=== PATIENT | male | born 1955 | race Caucasian/White ===

== ENCOUNTER → 2018-12-01 | Outpatient (CLI) | payer MEDICARE, MEDICAID ==
--- NOTE | 2018-12-02 12:27 | RADONC ---
RADIATION ONCOLOGY CONSULTATION NOTE DATE: 12/01/2018 CHART NUMBER: [id number] DIAGNOSIS: Mycoses fungoides. STAGE: Recurrent. ECOG PERFORMANCE STATUS: 3. CONSULTATION NOTE: Mr. 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 These lesions are causing him itchiness. He is also here to discuss the possibilities of phototherapy, which has been recommended. HISTORY OF PRESENT ILLNESS: I do not have any records on this patient but apparently he was initially diagnosed in the year 2011 with extensive mycoses lesions involving his legs, shoulders, buttocks, and other areas. The patient was seen in [place] and has been treated with nitrogen mustard and other topical agents over the years. He has had good control with minimal problems throughout that time. Recently, he has had some increased flare-up involving his left buttock, as well as his right upper shoulder region. He is now presenting to me for discussion of phototherapy. The lesions appear to be resistant to Imiquimod treatment. PAST MEDICAL HISTORY: The patient's past medical history is positive for hepatitis and seizure disorder. He is presently in an assisted living facility. ALLERGIES: The patient has NO KNOWN DRUG ALLERGIES. SOCIAL HISTORY: The patient does not smoke cigarettes nor abuse alcohol. FAMILY HISTORY: The patient's family history is unknown. REVIEW OF SYSTEMS: The patient's review of systems is positive for physical limitations and malformation of his left upper extremity. He also has some itching of the skin. He has not been verbal throughout the consultation. PHYSICAL EXAMINATION: The patient's skin shows lesions present over his left buttock, as well as small lesions over his legs bilaterally and his right shoulder. The skin otherwise is in good condition. Remainder of the physical exam is remarkable for his limited range of motion in his upper extremity. There is no palpable cervical, supraclavicular, infraclavicular or axillary lymphadenopathy present. His lungs are clear to auscultation and percussion. His heart has regular rate and rhythm. ASSESSMENT The patient has scattered patches of mycoses fungoides, which have been chronic in nature and are now apparently resistant to his Imiquimod treatment. I had a lengthy discussion with the patient's caregiver in the presence of the patient. I think it reasonable to attempt phototherapy at this point. Indeed this is not a curative disease, the role of treatment is palliation of his symptoms. Of course, we could treat this area with palliative radiotherapy at anytime. Since however, he has a long life expectancy and there are limits to the treatments you can give with radiation, I am not against trying phototherapy first. I have set the patient to come back to us in 6 months for further followup. Clearly, if phototherapy works and alleviates his problems, then this should be continued. If he becomes resistant to that, we are more than happy to see him at any time and I have given the patient's caregiver my cell phone number, as well as office number to call me. Any area of the skin can be treated relatively safely with palliative radiation therapy. We did speak as well about total skin electron beam treatments and I have put a call in to obtain the expert opinion of the radiation oncologists in [place] who do such treatments. At this point however, considering his limited range of motion of the upper extremity and a limited amount lesions on his body, I think local treatment would be indicated. I let the patient's caregiver know that in the future should he develop an overall problem, total skin electron beam is available to him as well. Once again, in summary, I am recommending that phototherapy be attempted first. We are setting him up for followup and reevaluation in a few months. If phototherapy does not work, he is a candidate for palliative radiation therapy. Thank you for allowing us to participate in the care of this very pleasant gentleman. If I can be of any further assistance, please free to contact me anytime. As always, warm regards, Octavio Brooks MD cc: DAVID Gonzalez
== END ==
LOC: M ONCR 08:35
PROVIDERS: ATTEND Radiology Radiation Oncology
DX: C84.08 Mycosis fungoides, lymph nodes of multiple sites (principal)

== ENCOUNTER → 2023-06-23 | Outpatient (REF) | payer MEDICARE, MEDICAID | LOC: M SFHCDERM 14:01 | PROVIDERS: ATTEND Physician Assistant | DX: T14.8XXA Other injury of unspecified body region, initial encounter (principal) ==

== ENCOUNTER → 2023-07-23 | Outpatient (CLI) | payer MEDICARE, MEDICAID ==
[~2023-07-23] MED LIST: DOCU100C16 PO; FLUO5OI TOP; LEVE500T5 PO; METO1TAB32 PO
== END ==
LOC: M ONCR 08:08
PROVIDERS: ATTEND General Practice
DX: C84.09 Mycosis fungoides, extranodal and solid organ sites (principal); C84.08 Mycosis fungoides, lymph nodes of multiple sites; F79 Unspecified intellectual disabilities; Z79.899 Other long term (current) drug therapy; Z71.2 Person consulting for explanation of examination or test findings

== ENCOUNTER → 2023-08-07 | Outpatient (RCR) | payer MEDICARE, MEDICAID | LOC: M ONCR 10:07 | PROVIDERS: ATTEND General Practice | DX: Z51.0 Encounter for antineoplastic radiation therapy (principal); C84.09 Mycosis fungoides, extranodal and solid organ sites ==

== ENCOUNTER 2023-08-22 08:09 | Outpatient (RCR) | payer MEDICARE, MEDICAID | END 2023-09-07 | LOC: M ONCR 08:09 | PROVIDERS: ATTEND General Practice | DX: Z51.0 Encounter for antineoplastic radiation therapy (principal); C84.09 Mycosis fungoides, extranodal and solid organ sites; C84.08 Mycosis fungoides, lymph nodes of multiple sites ==

== ENCOUNTER → 2023-10-08 | Outpatient (CLI) | payer MEDICARE, MEDICAID | LOC: M ONCR 08:52 | PROVIDERS: ATTEND General Practice | DX: C84.09 Mycosis fungoides, extranodal and solid organ sites (principal); C84.08 Mycosis fungoides, lymph nodes of multiple sites; Z92.3 Personal history of irradiation ==

== ENCOUNTER → 2024-03-09 | Outpatient (CLI) | payer MEDICARE, MEDICAID | LOC: M ONCR 08:27 | PROVIDERS: ATTEND General Practice | DX: F79 Unspecified intellectual disabilities (principal); C84.00 Mycosis fungoides, unspecified site; Z92.3 Personal history of irradiation ==

== ENCOUNTER → 2024-08-04 | Outpatient (CLI) | payer MEDICARE, MEDICAID | LOC: M ONCR 09:17 | PROVIDERS: ATTEND General Practice | DX: C84.09 Mycosis fungoides, extranodal and solid organ sites (principal); C84.08 Mycosis fungoides, lymph nodes of multiple sites; F79 Unspecified intellectual disabilities; Z92.3 Personal history of irradiation; Z79.899 Other long term (current) drug therapy ==

== ENCOUNTER → 2024-09-07 | Outpatient (RCR) | payer MEDICARE, MEDICAID | LOC: M ONCR 08-23 07:50 | PROVIDERS: ATTEND General Practice | DX: Z51.0 Encounter for antineoplastic radiation therapy (principal); C84.09 Mycosis fungoides, extranodal and solid organ sites ==

== ENCOUNTER 2024-09-13 09:40 | Outpatient (RCR) | payer MEDICARE, MEDICAID | END 2024-10-08 | LOC: M ONCR 09:40 | PROVIDERS: ATTEND General Practice | DX: Z51.0 Encounter for antineoplastic radiation therapy (principal); C84.09 Mycosis fungoides, extranodal and solid organ sites ==

== ENCOUNTER → 2024-10-18 | Outpatient (CLI) | payer MEDICARE, MEDICAID | LOC: M ONCR 08:17 | PROVIDERS: ATTEND General Practice | DX: C84.09 Mycosis fungoides, extranodal and solid organ sites (principal); Z92.3 Personal history of irradiation ==

== ENCOUNTER → 2025-03-17 | Outpatient (CLI) | payer MEDICARE, MEDICAID | LOC: M ONCR 08:37 | PROVIDERS: ATTEND General Practice | DX: C84.00 Mycosis fungoides, unspecified site (principal); Z92.3 Personal history of irradiation ==

== ENCOUNTER 2025-03-28 13:08 | Outpatient (RCR) | payer MEDICARE, MEDICAID ==
[2025-04-04] MEDS ORDERED: MUPI2OI (11:23)
[2025-04-04] MEDS ORDERED: [UNRECOGNIZED DRUG - CODE] PO (11:23)
[2025-04-04] MEDS ORDERED: D 50CAP2 (11:23)
[2025-04-04] MEDS ORDERED: KEPP1TAB PO (11:23)
[2025-04-04] MEDS ORDERED: ACET1TAB55 PO (11:23)
[2025-04-04] MEDS ORDERED: PRAV10TA43 (11:23)
[2025-04-04] MEDS ORDERED: HALO0.056 (11:23)
[2025-04-04] MEDS ORDERED: CYAN-1 (11:23)
[2025-04-04] MEDS ORDERED: METH2.5T48 PO ×2 (14:59→15:34)
[2025-04-04] MEDS ORDERED: FOLI400T13 PO ×2 (15:02→15:25)
== END 2025-04-07 ==
LOC: M ONCR 13:08
PROVIDERS: ATTEND General Practice
DX: C84.09 Mycosis fungoides, extranodal and solid organ sites (principal)

== ENCOUNTER → 2025-07-15 | Outpatient (CLI) | payer MEDICARE, MEDICAID ==
[~2025-07-15] MED LIST changes: +ACET1TAB55 PO; +CYAN-1; +D 50CAP2; +FOLI1TAB11 PO; +FOLI400T13 PO; +HALO0.056; +KEPP1TAB PO; +METH2.5T48 PO; +MUPI2OI; +PRAV10TA43; +[UNRECOGNIZED DRUG - CODE] PO
== END ==
LOC: M ONCR 08:53
PROVIDERS: ATTEND General Practice
DX: C84.09 Mycosis fungoides, extranodal and solid organ sites (principal); C84.08 Mycosis fungoides, lymph nodes of multiple sites; F79 Unspecified intellectual disabilities; Z79.631 Long term (current) use of antimetabolite agent; Z79.899 Other long term (current) drug therapy; Z92.3 Personal history of irradiation

== ENCOUNTER 2025-07-28 13:57 | Outpatient (RCR) | payer MEDICARE, MEDICAID | END 2025-08-07 | LOC: M ONCR 13:57 | PROVIDERS: ATTEND General Practice | DX: Z51.0 Encounter for antineoplastic radiation therapy (principal); C84.09 Mycosis fungoides, extranodal and solid organ sites ==

== ENCOUNTER → 2025-09-07 | Outpatient (RCR) | payer MEDICARE, MEDICAID ==
[~2025-09-07] MED LIST changes: +AQUAOIN12 TP
== END ==
LOC: M ONCR 08-15 08:57
PROVIDERS: ATTEND General Practice
DX: Z51.0 Encounter for antineoplastic radiation therapy (principal); C84.09 Mycosis fungoides, extranodal and solid organ sites